=== PATIENT | male | born 1990 ===

== ENCOUNTER 2021-11-21 18:04 | Emergency (ER) | payer OTHER, SELFPAY ==
[2021-11-21 18:46] VITALS: BP 136/86; PULSE 88; RESP 16; TEMP 36.8; O2SAT 98
--- NOTE | 2021-11-21 21:08 | W.ED.COVID ---
HPI - COVID General: Chief Complaint: COVID symptoms Stated Complaint: Covid Symptoms Time Seen by Provider: 11/21/21 20:08 Triage information: Has fever, cough or shortness of breath. Exposure to COVID + person last 14 days History of Present Illness: HPI Narrative: 31-year-old male patient comes in tonight with body aches, headache, fever, and nausea and vomiting 6 times starting last night. Patient's been unable to hold fluids down most of the day. Patient appears unwell but not toxic. Patient appears in mild pain. COVID 19 common symptoms: positive fever(s), headache(s), nausea and vomiting COVID Results: SARS-CoV-2 RNA (RT-PCR) Pending 11/21/21 21:45 11/21/21 Review of Systems Const: Reports: fever(s) and malaise GI: Reports: nausea and vomiting Neuro: Reports: headache(s) Physical Exam Const: COMMON NORMALS: patient oriented x3 and alert GENERAL APPEARANCE: ill appearing HENMT: MOUTH: moist mucous membranes abnormal Details: parched Lymph: LYMPHATIC: No lymphadenopathy Resp: COMMON NORMALS: normal respiratory effort and clear to auscultation bilaterally AUSCULTATION: clear to auscultation bilaterally GI: COMMON NORMALS: Soft to palpation AUSCULTATION: Yes Hyperactive bowel sounds present PALPATION: Yes Soft to palpation and No Tenderness to palpation present (GI) Neuro: COMMON NORMALS: patient oriented x3 SENSORIUM/ORIENTATION: Yes alert Psych: COMMON NORMALS: cooperative Course Vital Signs: Vital signs: Vital Signs Temperature 98.3 F 11/21/21 18:46 Pulse Rate 88 11/21/21 18:46 Respiratory Rate 16 11/21/21 18:46 Blood Pressure 136/86 11/21/21 18:46 Pulse Oximetry 95 11/21/21 21:57 MDM - COVID MDM Narrative: Medical decision making narrative: 31-year-old male patient comes in today with complaints of nausea vomiting, headache, body aches and fever for the last 24 hours. On exam oral mucosa is parched, respirations are even lungs are clear to auscultation, abdomen soft and nontender with some hyperactive bowel sounds. Differential diagnosis includes but not limited to COVID-19, gastroenteritis, viral syndrome. Patient has had positive exposure to COVID-19. Suspect patient probably has COVID-19. Patient done a home antigen test which was negative today. We will do a send out PCR test. Patient was given IV fluids 1 L, 30 mg of Toradol for body aches, 4 mg of Zofran for nausea. We will continue the Zofran at home as needed. Patient was encouraged to drink plenty of fluids and follow-up with primary care for further instruction. Patient reported understanding. COVID Results: SARS-CoV-2 RNA (RT-PCR) Pending 11/21/21 21:45 11/21/21 Discharge Plan Discharge Patient Disposition: Home Clinical Impression: Viral infection, Exposure to severe acute respiratory syndrome coronavirus 2 (SARS-CoV-2) Condition: Stable Prescriptions: New ondansetron 4 mg tablet,disintegrating 4 mg PO Q8H PRN (Reason: nausea and vomiting) Qty: 10 RF: 0 Discharge Orders: Discharge ED (Routine); Ordered 11/21/21 Ordered By: Michael Keith Discharge Diet: Advance as tolerated Patient Instructions: Acute Nausea and Vomiting (ED) Activity Restrictions/Additional Instructions: Drink plenty of fluids. Eat a bland diet. Use ondansetron 1 tablet every 8 hours as needed for nausea. Use acetaminophen and ibuprofen for pain and fever. The COVID test will take about 24 to 48 hours for results. Most people are ill for 5 days with COVID-19. Avoid contact with other individuals while ill. Follow-up with primary care or return to the ER for worsening symptoms. Stand Alone Forms: Work/School Release Coding Level of Care Code ED Acrobatic Rigger for Nicolette Fweitan Exam Detailed
[2021-11-21] MEDS: ketorolac 30 mg/mL INJ IVP (21:49)
[2021-11-21] MEDS: ondansetron 2 mg/ML SDV 2 mL 4 MG IVP (21:49)
[2021-11-21] MEDS: sodium chloride 0.9% 1,000 ML 999 ML IV (21:50)
[2021-11-21] MEDS: dexamethasone 4 mg/mL INJ IVP (21:50)
[2021-11-21 21:57] VITALS: O2SAT 95
[2021-11-21 23:05] VITALS: BP 130/82; PULSE 88; RESP 16; O2SAT 98
[2021-11-23 18:56] LABS: Quest SARS-CoV-2 RNA DETECTED (NOT DETECTED)
== END 2021-11-21 22:15 | disposition home or self-care (01) ==
PROVIDERS: Emergency Medicine; Emergency Provider Nurse Practitioner Family
DX: U07.1 COVID-19 (principal)
CPT/HCPCS: 87635; 96361; 96374; 96375; 99284; J1100; J1885; J2405; J7030